=== PATIENT | male | born 1980 | race Caucasian/White ===

== ENCOUNTER 2018-03-18 22:25 | Emergency (ER) | payer OTHER ==
[~2018-03-18] VITALS: Ht 170.2 cm; Wt 69.0 kg
[2018-03-19] MEDS ORDERED: BACITRACIN ZINC OINT UDPKT TOP ONE (00:30)
[2018-03-19 01:15] VITALS: BP 144/91
== END 2018-03-19 01:20 | disposition home or self-care (01) ==
LOC: ER 22:25
DX: S63.502A Unspecified sprain of left wrist, initial encounter (principal); F15.10 Other stimulant abuse, uncomplicated; W01.0XXA Fall on same level from slipping, tripping and stumbling without subsequent striking against object, initial encounter; Y93.89 Activity, other specified; Y92.89 Other specified places as the place of occurrence of the external cause
CPT/HCPCS: 73110; 99283